=== PATIENT | female | born 1940 | race Caucasian/White ===

== ENCOUNTER 2017-12-15 21:17 | Inpatient (IN) | payer MEDICARE, OTHER ==
[2017-12-15] MEDS ORDERED: Acetaminophen/oxyCODONE 325-5 MG Tab PO ONE (22:32)
[2017-12-15] MEDS ORDERED: Pramipexole 0.5 MG Tab PO ONE (22:42)
--- NOTE | 2017-12-15 22:53 | EDM.PDOC ---
ED HPI GENERAL MEDICAL PROBLEM - General Chief Complaint: Lower Extremity Injury/Pain Stated Complaint: LEGS JUMPY Time Seen by Provider: 12/15/17 21:24 Source of Information: Reports: Patient, Family History Limitations: Reports: No Limitations - History of Present Illness INITIAL COMMENTS - FREE TEXT/NARRATIVE: 77 y.o.w.f came to the ed with her family because of her leg "jumping"> Pt has a H/O restles leg syndrom and is on Mirapex, however, she did not take that medication for the past 2 days. Pt says, she ran out of Mirapex multiple times in the past 10 years. However, her legs were never so "jumpy". She feel several time in the past 2 days, no injuries, however. She was seen by the Chiropractor today, who recommended to come to the ED tonight for furterh evaluation.No N/V/ D or dizziness. Pt was ambulating fine here in the ED. Did not fall. BP 129/89 Pulse 76 Temp 36.6 Puls ox 97% Onset Date: 12/12/17 Onset Time: 08:00 Duration: Day(s):, Intermittent Location: Reports: Lower Extremity, Left, Lower Extremity, Right Severity: Mild Improves with: Reports: None Worsens with: Reports: None Context: Reports: Other (H/o restless leg syndrom) Associated Symptoms: Reports: Other (frequent falls) Bilateral Leg Pain Score (Numeric/FACES): 8 - Related Data Allergies Allergy/AdvReac Type Severity Reaction Status Date / Time meperidine HCl [From Demerol] Allergy Dizziness Verified 12/15/17 21:23 Home Meds: Home Meds Aspirin 81 mg PO DAILY 03/02/14 [History] FLUoxetine [PROzac] 20 mg PO DAILY 03/02/14 [History] Glycopyrrolate [Robinul] 1 mg PO TID 03/02/14 [History] Insulin Glargine,Hum.Rec.Anlog [Lantus Solostar] 26 units SQ DAILY 03/02/14 [ History] Insulin Lispro [HumaLOG] 6 unit SQ TIDMEALS 03/02/14 [History] Prenat Vit Comb.10/Iron/Fa/Dha [Pnv-Ob with Dha Combo Pack] 1 tab PO DAILY 03/02 [History] Calc/D3/Mag/Zn/Dispensing Operator/Sushil/Comstock [Calcium 600 MG Plus Vit D] 1 tab PO TID 12/16/17 [History] Cyclobenzaprine [Flexeril] 10 mg PO TID PRN 12/16/17 [History] Ibuprofen [Advil] 200 mg PO Q6H PRN 12/16/17 [History] Ibuprofen/Diphenhydramine Cit [Advil Pm Caplet] 1 tab PO BEDTIME PRN 12/16/17 [ History] metFORMIN [Glucophage] 500 mg PO BIDMEALS 12/16/17 [History] Acetaminophen [Tylenol] 650 mg PO Q4H PRN tablet 12/17/17 [Rx] Ciprofloxacin [Ciprofloxacin HCl] 250 mg PO BID #10 tablet 12/17/17 [Rx] Pramipexole [Mirapex] 0.5 mg PO BID #60 tablet 12/17/17 [Rx] Pyridostigmine [Mestinon] 60 mg PO QID tablet 12/17/17 [Rx] metFORMIN [Glucophage] 500 mg PO BIDMEALS tablet 12/17/17 [Rx] Past Medical History Neurological History: Reports: Other (See Below) Other Neuro History: restless legs Endocrine/Metabolic History: Reports: Diabetes, Type II - Past Surgical History Female Surgical History: Reports: Other (See Below) Other Female Surgeries/Procedures: A&P repair Social & Family History - Tobacco Use Smoking Status *Q: Never Smoker - Caffeine Use Caffeine Use: Reports: Coffee - Alcohol Use Days Per Week of Alcohol Use: 0 - Recreational Drug Use Recreational Drug Use: No Review of Systems - Review of Systems Review Of Systems: See Below Constitutional: Reports: No Symptoms Eyes: Reports: No Symptoms Ears: Reports: No Symptoms Nose: Reports: No Symptoms Mouth/Throat: Reports: No Symptoms Respiratory: Reports: No Symptoms Cardiovascular: Reports: No Symptoms GI/Abdominal: Reports: No Symptoms Genitourinary: Reports: No Symptoms Musculoskeletal: Reports: No Symptoms Skin: Reports: No Symptoms Neurological: Reports: Other (her legs jump) Psychiatric: Reports: No Symptoms ED EXAM, GENERAL - Physical Exam Exam: See Below Exam Limited By: No Limitations General Appearance: Alert, WD/WN, No Apparent Distress Eye Exam: Bilateral Eye: Normal Inspection Ears: Normal External Exam Ear Exam: Bilateral Ear: Auricle Normal Nose: Normal Inspection Throat/Mouth: Normal Inspection Head: Atraumatic, Normocephalic Neck: Normal Inspection Respiratory/Chest: No Respiratory Distress Cardiovascular: Normal Peripheral Pulses, Regular Rate, Rhythm GI/Abdominal: Normal Bowel Sounds, Soft (Female) Exam: Deferred Rectal (Female) Exam: Deferred Back Exam: Normal Inspection, Full Range of Motion Extremities: Normal Inspection, Normal Range of Motion, Non-Tender, No Pedal Edema, Redness (both thighs) Neurological: Alert Psychiatric: Normal Affect, Normal Mood Skin Exam: Warm, Dry, Intact, Rash (both thighs) Lymphatic: No Adenopathy Course - Vital Signs Text/Narrative:: 77 y.o.w.f came to the ed with her family because of her leg "jumping"> Pt has a H/O restles leg syndrom and is on Mirapex, however, she did not take that medication for the past 2 days. Pt says, she ran out of Mirapex multiple times in the past 10 years. However, her legs were never so "jumpy". She feel several time in the past 2 days, no injuries, however. She was seen by the Chiropractor today, who recommended to come to the ED tonight for furterh evaluation.No N/V/ D or dizziness. Pt was ambulating fine here in the ED. Did not fall. BP 129/89 Pulse 76 Temp 36.6 Puls ox 97% PE: Erythema both thighs, "jumping legs" Labs: CBC nl, BMP GFR 48 Glc 188 GLC A1C1 10.2 ( no old labs are available) Impression: H/O restless leg syndrom, IDDM with hyperglycemia (GLC A1C i1 10.2) . Bilaterythem on both thighs. Poor compliance. 10.10 pm Consultation: Dr. Rey, Neurologist at [facility]: Recommended to the pt Perocet or any narcotic plus Mirapex and observe her overnight in the Hospital. She did not recommend other tests to be done tonight. Tx: Percocet and Mirapex Plan: Admit for observation Last Recorded V/S: Last Vital Signs Temp 36.7 C 12/17/17 08:00 Pulse 84 12/17/17 08:00 Resp 16 12/17/17 08:00 BP 133/73 12/17/17 08:00 Pulse Ox 96 12/17/17 08:00 - Orders/Labs/Meds Labs: Laboratory Tests 12/15/17 12/15/17 12/15/17 Range/Units 22:15 22:15 22:15 WBC 7.3 (4.5-12.0) X10-3/uL RBC 4.15 (3.23-5.20) x10(6)uL Hgb 12.4 (11.5-15.5) g/dL Hct 36.8 (30.0-51.3) % MCV 88.7 (80-96) fL MCH 29.9 (27.7-33.6) pg MCHC 33.7 (32.2-35.4) g/dL RDW 12.8 (11.5-15.5) % Plt Count 205 (125-369) X10(3)uL MPV 8.3 (7.4-10.4) fL Neut % (Auto) 63.0 (46-82) % Lymph % (Auto) 24.8 (13-37) % [place] % (Auto) 8.5 (4-12) % Eos % (Auto) 3 (1.0-5.0) % Baso % (Auto) 1 (0-2) % Neut # (Auto) 4.6 (1.6-8.3) # Lymph # (Auto) 1.8 (0.6-5.0) # [place] # (Auto) 0.6 (0.0-1.3) # Eos # (Auto) 0.2 (0.0-0.8) # Baso # (Auto) 0.1 (0.0-0.2) # Sodium 141 (135-145) mmol/L Potassium 4.7 (3.5-5.3) mmol/L Chloride 105 (100-110) mmol/L Carbon Dioxide 28 (21-32) mmol/L BUN 33 H (7-18) mg/dL Creatinine 1.1 H (0.55-1.02) mg/dL Est Cr Clr Drug Dosing 33.34 mL/min Estimated GFR (MDRD) 48 L (>60) BUN/Creatinine Ratio 30.0 H (9-20) Glucose 188 H (80-116) mg/dL POC Glucose (80-116) mg/dL Hemoglobin A1c 10.2 H (4.5-6.2) % Calcium 9.2 (8.6-10.2) mg/dL Urine Color (YELLOW) Urine Appearance (CLEAR) Urine pH (5.0-6.5) Ur Specific [place] (1.010-1.025) Urine Protein (NEGATIVE) mg/dL Urine Glucose (UA) (NEGATIVE) mg/dL Urine Ketones (NEGATIVE) mg/dL Urine Occult Blood (NEGATIVE) Urine Nitrite (NEGATIVE) Urine Bilirubin (NEGATIVE) Urine Urobilinogen (NEGATIVE) mg/dL Ur Leukocyte Esterase (NEGATIVE) Urine RBC (0) Urine WBC (0) Ur Squamous Epith Cells (NS,R,O) Urine Bacteria (NS) Urine Mucus (NS) 12/16/17 12/16/17 12/16/17 Range/Units 05:50 05:50 09:20 WBC (4.5-12.0) X10-3/uL RBC (3.23-5.20) x10(6)uL Hgb (11.5-15.5) g/dL Hct (30.0-51.3) % MCV (80-96) fL MCH (27.7-33.6) pg MCHC (32.2-35.4) g/dL RDW (11.5-15.5) % Plt Count (125-369) X10(3)uL MPV (7.4-10.4) fL Neut % (Auto) (46-82) % Lymph % (Auto) (13-37) % [place] % (Auto) (4-12) % Eos % (Auto) (1.0-5.0) % Baso % (Auto) (0-2) % Neut # (Auto) (1.6-8.3) # Lymph # (Auto) (0.6-5.0) # [place] # (Auto) (0.0-1.3) # Eos # (Auto) (0.0-0.8) # Baso # (Auto) (0.0-0.2) # Sodium 142 (135-145) mmol/L Potassium 3.9 (3.5-5.3) mmol/L Chloride 106 (100-110) mmol/L Carbon Dioxide 28 (21-32) mmol/L BUN 30 H (7-18) mg/dL Creatinine 0.9 (0.55-1.02) mg/dL Est Cr Clr Drug Dosing 60.37 mL/min Estimated GFR (MDRD) > 60 (>60) BUN/Creatinine Ratio 33.3 H (9-20) Glucose 84 D (80-116) mg/dL POC Glucose (80-116) mg/dL Hemoglobin A1c 10.3 H (4.5-6.2) % Calcium 8.6 (8.6-10.2) mg/dL Urine Color Yellow (YELLOW) Urine Appearance Clear (CLEAR) Urine pH 5.0 (5.0-6.5) Ur Specific [place] 1.025 (1.010-1.025) Urine Protein Negative (NEGATIVE) mg/dL Urine Glucose (UA) Normal (NEGATIVE) mg/dL Urine Ketones 15 H (NEGATIVE) mg/dL Urine Occult Blood Negative (NEGATIVE) Urine Nitrite Negative (NEGATIVE) Urine Bilirubin Negative (NEGATIVE) Urine Urobilinogen Normal (NEGATIVE) mg/dL Ur Leukocyte Esterase Moderate H (NEGATIVE) Urine RBC 0-5 (0) Urine WBC 50-75 H (0) Ur Squamous Epith Cells Moderate H (NS,R,O) Urine Bacteria Moderate H (NS) Urine Mucus Moderate H (NS) 12/16/17 12/16/17 Range/Units 11:04 16:06 WBC (4.5-12.0) X10-3/uL RBC (3.23-5.20) x10(6)uL Hgb (11.5-15.5) g/dL Hct (30.0-51.3) % MCV (80-96) fL MCH (27.7-33.6) pg MCHC (32.2-35.4) g/dL RDW (11.5-15.5) % Plt Count (125-369) X10(3)uL MPV (7.4-10.4) fL Neut % (Auto) (46-82) % Lymph % (Auto) (13-37) % [place] % (Auto) (4-12) % Eos % (Auto) (1.0-5.0) % Baso % (Auto) (0-2) % Neut # (Auto) (1.6-8.3) # Lymph # (Auto) (0.6-5.0) # [place] # (Auto) (0.0-1.3) # Eos # (Auto) (0.0-0.8) # Baso # (Auto) (0.0-0.2) # Sodium (135-145) mmol/L Potassium (3.5-5.3) mmol/L Chloride (100-110) mmol/L Carbon Dioxide (21-32) mmol/L BUN (7-18) mg/dL Creatinine (0.55-1.02) mg/dL Est Cr Clr Drug Dosing mL/min Estimated GFR (MDRD) (>60) BUN/Creatinine Ratio (9-20) Glucose (80-116) mg/dL POC Glucose 194 H 140 H (80-116) mg/dL Hemoglobin A1c (4.5-6.2) % Calcium (8.6-10.2) mg/dL Urine Color (YELLOW) Urine Appearance (CLEAR) Urine pH (5.0-6.5) Ur Specific [place] (1.010-1.025) Urine Protein (NEGATIVE) mg/dL Urine Glucose (UA) (NEGATIVE) mg/dL Urine Ketones (NEGATIVE) mg/dL Urine Occult Blood (NEGATIVE) Urine Nitrite (NEGATIVE) Urine Bilirubin (NEGATIVE) Urine Urobilinogen (NEGATIVE) mg/dL Ur Leukocyte Esterase (NEGATIVE) Urine RBC (0) Urine WBC (0) Ur Squamous Epith Cells (NS,R,O) Urine Bacteria (NS) Urine Mucus (NS) Meds: Medications Discontinued Medications Generic Name Dose Route Start Last Admin Trade Name Freq PRN Reason Stop Dose Admin Acetaminophen 650 mg 12/16/17 18:30 Tylenol PO Q4H PRN Pain Ciprofloxacin 250 mg 12/17/17 10:00 12/17/17 10:35 Ciprofloxacin Hcl PO 250 mg BID ANNE Administration Fluoxetine HCl 20 mg 12/16/17 09:00 12/17/17 08:42 Prozac PO 20 mg DAILY ANNE Administration Insulin Aspart 4 unit 12/16/17 21:00 12/17/17 08:23 Novolog SUBCUT 4 units QIDACANDBED ANNE Administration Insulin Aspart 4 unit 12/17/17 08:24 12/17/17 13:13 Novolog SUBCUT 4 units QIDACANDBED ANNE Administration Insulin Detemir 26 unit 12/17/17 09:00 12/17/17 10:56 Levemir SUBCUT 26 units DAILY ANNE Administration Metformin HCl 500 mg 12/16/17 10:00 12/16/17 17:43 Glucophage PO 500 mg BIDMEALS ANNE Administration Metformin HCl 500 mg 12/17/17 08:00 12/17/17 08:21 Glucophage PO 500 mg BIDMEALS ANNE Administration Lantus *Ptom 0 units 12/16/17 09:00 12/16/17 10:22 SQ 26 units DAILY ANNE Administration Humalog *Ptom 0 unit 12/16/17 11:30 12/16/17 17:40 SQ 4 unit ACBED ANNE Administration Pyridostigmine 60mg 0 mg 12/16/17 09:00 12/16/17 17:38 *Ptom PO 60 mg QID ANNE Administration Lantus *Ptom 0 units 12/17/17 10:30 12/17/17 10:37 SQ Not Given DAILY ANNE Oxycodone/Acetaminophen 1 tab 12/15/17 22:32 12/15/17 23:01 Percocet 325-5 Mg PO 12/15/17 22:33 1 tab ONETIME ONE Administration Oxycodone/Acetaminophen 1 tab 12/16/17 04:00 12/16/17 16:01 Percocet 325-5 Mg PO Not Given Q4H ANNE Pramipexole Dihydrochloride 0.5 mg 12/16/17 21:00 Mirapex PO BEDTIME ANNE Pramipexole Dihydrochloride 0.5 mg 12/16/17 22:42 Mirapex PO 12/16/17 22:43 ONETIME ONE Pramipexole Dihydrochloride 0.5 mg 12/15/17 22:42 12/15/17 23:00 Mirapex PO 12/15/17 22:43 Not Given ONETIME ONE Pramipexole Dihydrochloride 0.5 mg 12/15/17 23:00 12/15/17 23:01 Mirapex PO 12/15/17 23:01 0.5 mg ONETIME ONE Administration Pramipexole Dihydrochloride Confirm 12/15/17 22:58 12/15/17 23:05 Mirapex Administered 12/15/17 22:59 Not Given Dose 0.5 mg .ROUTE .STK-MED ONE Pramipexole Dihydrochloride 0.5 mg 12/16/17 10:00 12/17/17 08:42 Mirapex PO 0.5 mg BID ANNE Administration Pyridostigmine [place] 60 mg 12/16/17 21:00 12/17/17 13:18 Mestinon PO 60 mg QID ANNE Administration Departure - Departure Time of Disposition: 23:00 Disposition: Refer to Observation Condition: Fair Clinical Impression: Restless leg syndrome - Discharge Information
[2017-12-15] MEDS ORDERED: Pramipexole 0.25 MG Tab ONE (22:58)
[2017-12-15] MEDS ORDERED: Pramipexole 0.25 MG Tab PO ONE (23:00)
[2017-12-16] MEDS: Acetaminophen/oxyCODONE 325-5 MG Tab PO SCH ×4 (04:17→16:01)
[2017-12-16] MEDS ORDERED: LANTUS SQ SCH (09:00)
[2017-12-16] MEDS ORDERED: Pramipexole 0.5 MG Tab PO SCH ×2 (09:45→21:00)
[2017-12-16] MEDS ORDERED: metFORMIN 1,000 MG Tab *PTOM PO SCH (10:00)
[2017-12-16] MEDS: FLUoxetine 20 MG Cap PO SCH (10:23)
[2017-12-16] MEDS: PYRIDOSTIGMINE 60 MG PO SCH ×3 (10:24→17:38)
[2017-12-16] MEDS: metFORMIN 1,000 MG Tab *PTOM PO SCH ×2 (10:25→17:43)
[2017-12-16] MEDS: HUMALOG SQ SCH ×2 (11:46→17:40)
[2017-12-16] MEDS ORDERED: Acetaminophen 325 MG Tab PO PRN (18:30)
[2017-12-16] MEDS: Insulin Aspart 100 Units/ML 3 ML Pen SUBCUT SCH (20:25)
[2017-12-16] MEDS ORDERED: Pramipexole 0.5 MG Tab PO ONE (22:42)
[2017-12-17] MEDS ORDERED: metFORMIN 500 MG Tab PO SCH (08:00)
[2017-12-17] MEDS: Insulin Aspart 100 Units/ML 3 ML Pen SUBCUT SCH (08:23)
[2017-12-17] MEDS ORDERED: Insulin Aspart 100 Units/ML 3 ML Pen SUBCUT SCH (08:24)
[2017-12-17] MEDS: FLUoxetine 20 MG Cap PO SCH (08:42)
--- NOTE | 2017-12-17 09:41 | HP ---
ADMISSION DATE: 12/15/2017 REASON FOR VISIT: Recurrent falls, complicated leg pain, and restless leg. HISTORY OF PRESENT ILLNESS: Katie Lopez is a 77-year-old female, admitted through the ER. She presented with a complicated "leg jumping", increasing severe restlessness, inability to function, increasing pain and difficulty. Mirapex is on board intermittently. Severe symptoms in the last four days and recurrent falls, all occurring within her home. Fall without events, fall without injury, occurred spontaneously. She was seen by Dr. Nolen, chiropractic practitioner, who recommend further followup and workup. PAST HISTORY: Longstanding history of diabetes mellitus, on insulin therapy- inadequate control, confirmed myasthenia gravis, followed by Neurology, history of supraventricular tachycardia. PAST SURGICAL HISTORY: Previous appendectomy for acute appendicitis, previous vaginal hysterectomy for benign disease. 1. Flexeril 10 mg one p.o. t.i.d. 2. Albuterol metered-dose inhaler two puffs q.i.d. 3. Metformin 1000 mg half tab b.i.d. 4. Bydureon on report, but on further record, she is on Lantus and Humalog accordingly. Chronic illnesses include diabetes mellitus, myasthenia gravis, complicated restless legs syndrome. ALLERGIES: Allergic to Demerol with dizziness. SOCIAL HISTORY: Retired. Worked in agriculture. Previously , . Three children. Never smoked. Nil alcohol consumption. No illicit drug use. FAMILY HISTORY: Negative for early heart disease, diabetes mellitus, or inheritable cancers. REVIEW OF SYSTEMS: Please see HPI. Otherwise feeling well. Weight has been stable. Eyes: Difficulty vision with myasthenia gravis. Hearing is intact, no difficulty eating, bowels have been fine. Bladder has been fine. No blood in stools. No blood in urine, skin rash, or joint pain. PHYSICAL EXAMINATION: VITAL SIGNS: Temperature 36.5, pulse 86, blood pressure 115/62, respirations 16, and O2 saturations 97%. GENERAL: Cooperative, conversant. HEENT: Reveal funduscopic benign. Bright TMs. Clear nasal discharge. Mouth and oropharynx clear. Good gag reflex. Tongue midline. NECK: Benign. Thyroid small. No adenopathy. No carotid bruits. CHEST: Clear in all lung rodriguez. HEART: Regular without ectopy or murmur. ABDOMEN: Benign. No hepatosplenomegaly. Surgical scars were absent. Right lower quadrant appendectomy scar is well healed. PELVIC AND RECTAL: Deferred. EXTREMITIES: Well perfused. Reflex symmetric, 2+ over 4+, good peripheral pulses. Reflexes intact. Sensation normal. LABORATORY STUDIES: CBC revealed white count 7300, hemoglobin 12.4, hematocrit 36.8, normal indices. Electrolytes satisfactory. Hemoglobin A1c 10.2 and 10.3. EKG will be obtained. ASSESSMENT: A 77-year-old female who presents with peculiar complicated restless leg, recurrent falls, likely exacerbation of MS and restless legs. PLAN: Mestinon will be continued. Increase Mirapex 1.25 2 p.o. at bedtime to 2 daily, complementary care and well-being. We will do EKG given neurological status, and history of rhythm issues. /[id number] /[facility] /[id number] /[facility]
[2017-12-17 09:43] VITALS: BP 133/73
[2017-12-17] MEDS ORDERED: Ciprofloxacin 250 MG Tab PO SCH (10:00)
--- NOTE | 2017-12-17 10:27 | PN ---
DATE SEEN: 12/17/2017 SUBJECTIVE: Maria Del Carmen Lopez is a 77-year-old female, who presented with complicated leg pain. RLS is a consideration. Left posterior calf pain persists. D-dimer will be obtained. Urinalysis was markedly abnormal, showing evidence of gram-negative roly. Will be treated accordingly with expectation to culture the following. Dealing well otherwise. OBJECTIVE: VITAL SIGNS: Stable. 36.7, 133/73, O2 saturation 96%, respirations 16. GENERAL: Cooperative, conversant, good spirits. NECK: Benign. Thyroid small. CHEST: Clear in all lung rodriguez. HEART: Regular without ectopy or murmur. ABDOMEN: Benign. EXTREMITIES: Examination of the leg revealed no posterior calf swelling, moderate pain left posterior calf. Pulses intact. Reflexes symmetric, sensation normal. ASSESSMENT: 1. Complicated restless legs syndrome. 2. Urinary tract infection. PLAN: Cipro 250 b.i.d. D-dimer to follow. Complementary care and well being. Results accordingly. /[id number] DANILO/FIDENCIO
[2017-12-17] MEDS ORDERED: LANTUS SQ SCH (10:30)
[2017-12-17] MEDS: Insulin Detemir 100 Units/ML 3 ML Pen SUBCUT SCH ×2 (10:37→10:56)
--- NOTE | 2017-12-17 12:24 | PN ---
DATE SEEN: 12/17/2017 SUBJECTIVE: Katie Lopez is a 77-year-old female who presents with complicated restless leg. Symptoms have been improved with intervention and care. PHYSICAL EXAMINATION: Persistent left posterior calf pain per exam. No obvious deformity. Reflex symmetric, sensation intact. Mild pain. LABORATORY STUDIES: D-dimer 3610, normal 0 to 400. ASSESSMENT: Calf pain, rule out deep venous thrombosis. PLAN: Ultrasound will be performed. Complementary care and well-being, results to follow. /[id number] /FIDENCIO
--- NOTE | 2017-12-18 09:40 | US ---
INDICATION: Bilateral calf pain, right greater than left, question DVT. DUPLEX ULTRASOUND, RIGHT LOWER EXTREMITY VEINS: Utilizing 2-D real time, duplex Doppler spectral analysis, and color flow imaging, examination of the right lower extremity veins revealed no evidence of deep venous thrombosis or obstruction. Compression views showed no abnormal lack of compression to suggest thrombosis. No evidence of incompetence of the valves was identified. IMPRESSION: Duplex ultrasound, right lower extremity veins, shows no evidence of deep venous thrombosis or incompetence. DUPLEX ULTRASOUND, LEFT LOWER EXTREMITY VEINS: Utilizing 2-D real time, duplex Doppler spectral analysis, and color flow imaging, examination of the left lower extremity veins revealed no evidence of deep venous thrombosis or obstruction. Compression views showed no abnormal lack of compression to suggest thrombosis. No evidence of incompetence of the valves was identified. IMPRESSION: Duplex ultrasound, left lower extremity veins, shows no evidence of deep venous thrombosis or incompetence. [facility]
--- NOTE | 2017-12-18 10:41 | DISCH ---
DISCHARGE DATE: 12/17/2017 Katie Lopez is a 77-year-old female who presented with complicated bilateral leg pain. Seen by [facility]. Consultation with neurology in [place]. Admitted for treatment and pain control. Diagnostic studies were unremarkable. Urinalysis suggests UTI, 50,000 colonies, E. coli suspected. Treated with Cipro 250 b.i.d. Adjustments of medications were obtained including Mirapex or Requip, increasing dose from 0.25 at bedtime to 0.5 b.i.d., complementary care and well-being. Posterior calf pain likely mechanical in nature. Ultrasound revealed at the time of discharge left leg without conflict, right leg under review. She was ambulatory. Pain was controlled, in good spirits. Elevated D-dimer, further review. Follow up with Dr. Barboza in 2 weeks' duration. SURGICAL PROCEDURES: None. CONSULTATIONS: None. /[id number] DANILO/[facility]
== END 2017-12-17 13:58 | disposition home or self-care (01) | DRG 57 ==
LOC: FB.ED 21:17 → FB.MS 23:06 → OBSVTOIN 12-16 18:30
PROVIDERS: ADMIT Family Medicine; ATTEND Family Medicine
DX: G25.81 Restless legs syndrome (principal); N39.0 Urinary tract infection, site not specified; E11.649 Type 2 diabetes mellitus with hypoglycemia without coma; Z79.4 Long term (current) use of insulin; R29.6 Repeated falls; T42.8X6A Underdosing of antiparkinsonism drugs and other central muscle-tone depressants, initial encounter; Z91.128 Patient's intentional underdosing of medication regimen for other reason; Z79.899 Other long term (current) drug therapy; Z88.8 Allergy status to other drugs, medicaments and biological substances; G70.00 Myasthenia gravis without (acute) exacerbation; M79.662 Pain in left lower leg; Z79.82 Long term (current) use of aspirin; Z88.5 Allergy status to narcotic agent
CPT/HCPCS: 36415 ×2; 80048 ×2; 81001; 82962 ×2; 83036 ×2; 85025; 87086; 87088 ×2; 93005; 99283; A9270 ×15; 85379; 87186; 93970; G0378

== ENCOUNTER 2021-12-07 20:33 | Emergency (ER) | payer MEDICARE, OTHER ==
[2021-12-07] MEDS ORDERED: Sodium Chloride 0.9% 10 ML Syringe FLUSH PRN (20:40)
[2021-12-07] MEDS ORDERED: Ondansetron 4 MG/2 ML SDV IVPUSH ONE (20:40)
[2021-12-07] MEDS ORDERED: Sodium Chloride 0.9% 1,000 ML IV SCH (20:45)
[2021-12-07 23:59] VITALS: BP 128/74; PULSE 81
== END 2021-12-07 23:00 | disposition home or self-care (01) ==
LOC: FB.ED 20:33
DX: E11.65 Type 2 diabetes mellitus with hyperglycemia (principal); R11.2 Nausea with vomiting, unspecified; Z88.8 Allergy status to other drugs, medicaments and biological substances; Z79.82 Long term (current) use of aspirin; Z79.4 Long term (current) use of insulin; Z20.822 Contact with and (suspected) exposure to COVID-19
CPT/HCPCS: 36415; 80053; 85025; 96374; 99284; J2405; J7030; U0002

== ENCOUNTER 2022-03-31 12:05 | Inpatient (IN) | payer MEDICARE, OTHER ==
[2022-03-31] MEDS: oxyCODONE 5 MG Tab PO PRN ×2 (17:02→21:20)
[2022-03-31] MEDS: Ibuprofen 200 MG Tab PO SCH (17:34)
[2022-03-31] MEDS: Acetaminophen 500 MG Tab PO SCH (17:34)
[2022-03-31] MEDS: Calcium Carbonate 500 MG Tablet PO SCH (17:34)
[2022-03-31] MEDS: metFORMIN 500 MG Tab.ER PO SCH (20:04)
[2022-03-31] MEDS: Pramipexole 0.25 MG Tab PO SCH (20:04)
[2022-03-31] MEDS: Aspirin 81 MG Tab.EC PO SCH (20:05)
[2022-03-31] MEDS: Donepezil 5 MG Tab PO SCH (20:05)
[2022-04-01] MEDS: Acetaminophen 500 MG Tab PO SCH ×5 (00:11→23:34)
[2022-04-01] MEDS: Ibuprofen 200 MG Tab PO SCH ×5 (00:12→23:33)
[2022-04-01] MEDS: oxyCODONE 5 MG Tab PO PRN ×2 (04:52→12:26)
[2022-04-01] MEDS ORDERED: 50% Dextrose in Water 50 ML Syringe IVPUSH PRN (08:28)
[2022-04-01] MEDS ORDERED: Glucagon,Human Recombinant 1 MG Vial IM PRN (08:28)
[2022-04-01] MEDS: metFORMIN 500 MG Tab.ER PO SCH ×2 (09:03→17:29)
[2022-04-01] MEDS: FLUoxetine 20 MG Cap PO SCH (09:05)
[2022-04-01] MEDS: Calcium Carbonate 500 MG Tablet PO SCH ×3 (09:05→17:30)
[2022-04-01] MEDS: Pramipexole 0.25 MG Tab PO SCH ×3 (09:05→20:08)
[2022-04-01] MEDS: Aspirin 81 MG Tab.EC PO SCH ×2 (09:07→20:07)
[2022-04-01] MEDS: Empagliflozin 25 MG Tab PO SCH (09:08)
[2022-04-01] MEDS ORDERED: Insulin Glargine,Human Rec. Analog 100 Units/ML 3 ML Pen SUBCUT ONE (09:14)
[2022-04-01] MEDS: Insulin Glargine,Human Rec. Analog 100 Units/ML 3 ML Pen SUBCUT SCH (09:16)
[2022-04-01] MEDS ORDERED: Insulin Lispro 100 Unit/ML 3 ML KwikPen SUBCUT ONE (11:02)
[2022-04-01] MEDS: Insulin Lispro 100 Unit/ML 3 ML KwikPen SUBCUT SCH ×2 (11:10→17:32)
[2022-04-01] MEDS: Ondansetron 8 MG Tab.DIS PO PRN ×2 (15:51→23:35)
[2022-04-01] MEDS: Donepezil 5 MG Tab PO SCH (20:06)
[2022-04-02] MEDS: Acetaminophen 500 MG Tab PO SCH ×4 (05:14→23:37)
[2022-04-02] MEDS: Ibuprofen 200 MG Tab PO SCH ×4 (05:14→23:38)
[2022-04-02] MEDS: Empagliflozin 25 MG Tab PO SCH (08:33)
[2022-04-02] MEDS: Aspirin 81 MG Tab.EC PO SCH ×2 (08:33→20:02)
[2022-04-02] MEDS: metFORMIN 500 MG Tab.ER PO SCH ×2 (08:33→18:06)
[2022-04-02] MEDS: Calcium Carbonate 500 MG Tablet PO SCH ×3 (08:33→18:07)
[2022-04-02] MEDS: Insulin Glargine,Human Rec. Analog 100 Units/ML 3 ML Pen SUBCUT SCH (08:34)
[2022-04-02] MEDS: Pramipexole 0.25 MG Tab PO SCH ×3 (08:35→20:03)
[2022-04-02] MEDS: FLUoxetine 20 MG Cap PO SCH (08:35)
[2022-04-02] MEDS: Insulin Lispro 100 Unit/ML 3 ML KwikPen SUBCUT SCH ×3 (08:36→18:07)
[2022-04-02] MEDS: oxyCODONE 5 MG Tab PO PRN ×2 (12:29→18:07)
[2022-04-02] MEDS: Donepezil 5 MG Tab PO SCH (20:01)
[2022-04-02] MEDS: Ondansetron 8 MG Tab.DIS PO PRN (23:39)
[2022-04-03] MEDS: oxyCODONE 5 MG Tab PO PRN (01:56)
[2022-04-03] MEDS: Acetaminophen 500 MG Tab PO SCH ×3 (05:42→18:05)
[2022-04-03] MEDS: Ibuprofen 200 MG Tab PO SCH ×2 (05:43→12:21)
[2022-04-03] MEDS: Calcium Carbonate 500 MG Tablet PO SCH ×3 (08:04→18:05)
[2022-04-03] MEDS: metFORMIN 500 MG Tab.ER PO SCH ×2 (08:04→17:57)
[2022-04-03] MEDS: Aspirin 81 MG Tab.EC PO SCH ×2 (08:06→20:31)
[2022-04-03] MEDS: Empagliflozin 25 MG Tab PO SCH (08:12)
[2022-04-03] MEDS: Insulin Lispro 100 Unit/ML 3 ML KwikPen SUBCUT SCH ×3 (08:13→18:04)
[2022-04-03] MEDS: Insulin Glargine,Human Rec. Analog 100 Units/ML 3 ML Pen SUBCUT SCH (08:13)
[2022-04-03] MEDS: Pramipexole 0.25 MG Tab PO SCH ×3 (08:15→20:32)
[2022-04-03] MEDS: FLUoxetine 20 MG Cap PO SCH (08:17)
[2022-04-03] MEDS ORDERED: traMADol 50 MG Tab PO PRN (13:39)
[2022-04-03] MEDS: Ondansetron 8 MG Tab.DIS PO PRN (15:30)
[2022-04-03] MEDS: Promethazine 25 MG Tab PO PRN ×2 (16:32→21:37)
[2022-04-03] MEDS: Donepezil 5 MG Tab PO SCH (20:31)
[2022-04-04] MEDS: Ondansetron 8 MG Tab.DIS PO PRN (00:25)
[2022-04-04] MEDS: Acetaminophen 500 MG Tab PO SCH ×5 (05:00→23:00)
[2022-04-04] MEDS: metFORMIN 500 MG Tab.ER PO SCH ×2 (08:48→17:59)
[2022-04-04] MEDS: Calcium Carbonate 500 MG Tablet PO SCH ×3 (08:48→18:03)
[2022-04-04] MEDS: Aspirin 81 MG Tab.EC PO SCH ×2 (08:49→21:08)
[2022-04-04] MEDS: Pramipexole 0.25 MG Tab PO SCH ×3 (08:51→21:09)
[2022-04-04] MEDS: FLUoxetine 20 MG Cap PO SCH (08:52)
[2022-04-04] MEDS: Insulin Lispro 100 Unit/ML 3 ML KwikPen SUBCUT SCH ×3 (08:53→17:58)
[2022-04-04] MEDS: Insulin Glargine,Human Rec. Analog 100 Units/ML 3 ML Pen SUBCUT SCH (11:21)
[2022-04-04] MEDS: Acetaminophen/HYDROcodone 325-5 MG Tab PO PRN (11:29)
[2022-04-04] MEDS: Empagliflozin 25 MG Tab PO SCH (11:34)
[2022-04-04] MEDS: Donepezil 5 MG Tab PO SCH (21:08)
[2022-04-05] MEDS: Acetaminophen 500 MG Tab PO SCH ×3 (05:47→17:38)
[2022-04-05] MEDS: metFORMIN 500 MG Tab.ER PO SCH ×2 (08:20→17:36)
[2022-04-05] MEDS: Insulin Lispro 100 Unit/ML 3 ML KwikPen SUBCUT SCH ×3 (08:21→17:39)
[2022-04-05] MEDS: Aspirin 81 MG Tab.EC PO SCH ×2 (08:22→20:47)
[2022-04-05] MEDS: Calcium Carbonate 500 MG Tablet PO SCH ×3 (08:22→17:37)
[2022-04-05] MEDS: Empagliflozin 25 MG Tab PO SCH (08:23)
[2022-04-05] MEDS: FLUoxetine 20 MG Cap PO SCH (08:24)
[2022-04-05] MEDS: Pramipexole 0.25 MG Tab PO SCH ×3 (08:24→20:47)
[2022-04-05] MEDS: Insulin Glargine,Human Rec. Analog 100 Units/ML 3 ML Pen SUBCUT SCH (08:25)
[2022-04-05] MEDS: Acetaminophen/HYDROcodone 325-5 MG Tab PO PRN (13:56)
[2022-04-05] MEDS: Donepezil 5 MG Tab PO SCH (20:47)
[2022-04-06] MEDS: Acetaminophen 500 MG Tab PO SCH ×4 (00:44→17:21)
[2022-04-06] MEDS: metFORMIN 500 MG Tab.ER PO SCH ×2 (07:44→17:20)
[2022-04-06] MEDS: Calcium Carbonate 500 MG Tablet PO SCH ×3 (07:45→17:21)
[2022-04-06] MEDS: Insulin Lispro 100 Unit/ML 3 ML KwikPen SUBCUT SCH ×3 (07:47→17:24)
[2022-04-06] MEDS: Aspirin 81 MG Tab.EC PO SCH ×2 (08:58→21:44)
[2022-04-06] MEDS: Pramipexole 0.25 MG Tab PO SCH ×3 (08:59→21:44)
[2022-04-06] MEDS: Empagliflozin 25 MG Tab PO SCH (08:59)
[2022-04-06] MEDS: FLUoxetine 20 MG Cap PO SCH (09:00)
[2022-04-06] MEDS: Insulin Glargine,Human Rec. Analog 100 Units/ML 3 ML Pen SUBCUT SCH (09:01)
[2022-04-06] MEDS: Acetaminophen/HYDROcodone 325-5 MG Tab PO PRN (21:42)
[2022-04-06] MEDS: Donepezil 5 MG Tab PO SCH (21:45)
[2022-04-07] MEDS: Acetaminophen 500 MG Tab PO SCH ×4 (00:52→17:41)
[2022-04-07] MEDS: Insulin Lispro 100 Unit/ML 3 ML KwikPen SUBCUT SCH ×3 (08:00→17:50)
[2022-04-07] MEDS: Insulin Glargine,Human Rec. Analog 100 Units/ML 3 ML Pen SUBCUT SCH (08:05)
[2022-04-07] MEDS: Empagliflozin 25 MG Tab PO SCH (08:09)
[2022-04-07] MEDS: metFORMIN 500 MG Tab.ER PO SCH ×2 (08:09→17:38)
[2022-04-07] MEDS: Pramipexole 0.25 MG Tab PO SCH ×3 (08:10→20:47)
[2022-04-07] MEDS: Calcium Carbonate 500 MG Tablet PO SCH ×3 (08:10→17:40)
[2022-04-07] MEDS: FLUoxetine 20 MG Cap PO SCH (08:10)
[2022-04-07] MEDS: Aspirin 81 MG Tab.EC PO SCH ×2 (08:10→20:46)
[2022-04-07] MEDS: Donepezil 5 MG Tab PO SCH (20:46)
[2022-04-08] MEDS: Acetaminophen 500 MG Tab PO SCH ×4 (00:19→17:06)
[2022-04-08] MEDS: Acetaminophen/HYDROcodone 325-5 MG Tab PO PRN (03:53)
[2022-04-08] MEDS: Calcium Carbonate 500 MG Tablet PO SCH ×3 (09:10→17:06)
[2022-04-08] MEDS: FLUoxetine 20 MG Cap PO SCH (09:10)
[2022-04-08] MEDS: Pramipexole 0.25 MG Tab PO SCH ×3 (09:10→21:06)
[2022-04-08] MEDS: metFORMIN 500 MG Tab.ER PO SCH ×2 (09:10→17:07)
[2022-04-08] MEDS: Aspirin 81 MG Tab.EC PO SCH ×2 (09:10→21:04)
[2022-04-08] MEDS: Insulin Lispro 100 Unit/ML 3 ML KwikPen SUBCUT SCH ×3 (09:11→18:15)
[2022-04-08] MEDS: Empagliflozin 25 MG Tab PO SCH (09:11)
[2022-04-08] MEDS: Insulin Glargine,Human Rec. Analog 100 Units/ML 3 ML Pen SUBCUT SCH (09:12)
[2022-04-08] MEDS: Donepezil 5 MG Tab PO SCH (21:04)
[2022-04-09] MEDS: Acetaminophen 500 MG Tab PO SCH ×5 (00:25→23:31)
[2022-04-09] MEDS: Calcium Carbonate 500 MG Tablet PO SCH ×3 (08:37→18:06)
[2022-04-09] MEDS: Aspirin 81 MG Tab.EC PO SCH ×2 (08:37→20:37)
[2022-04-09] MEDS: metFORMIN 500 MG Tab.ER PO SCH ×2 (08:37→18:05)
[2022-04-09] MEDS: FLUoxetine 20 MG Cap PO SCH (08:38)
[2022-04-09] MEDS: Pramipexole 0.25 MG Tab PO SCH ×3 (08:38→20:38)
[2022-04-09] MEDS: Empagliflozin 25 MG Tab PO SCH (08:38)
[2022-04-09] MEDS: Insulin Glargine,Human Rec. Analog 100 Units/ML 3 ML Pen SUBCUT SCH (08:38)
[2022-04-09] MEDS: Insulin Lispro 100 Unit/ML 3 ML KwikPen SUBCUT SCH ×3 (08:39→18:05)
[2022-04-09] MEDS: Ibuprofen 200 MG Tab PO SCH ×2 (18:38→23:30)
[2022-04-09] MEDS: Donepezil 5 MG Tab PO SCH (20:37)
[2022-04-10] MEDS: Acetaminophen 500 MG Tab PO SCH ×4 (06:17→23:56)
[2022-04-10] MEDS: Ibuprofen 200 MG Tab PO SCH ×4 (06:17→23:56)
[2022-04-10] MEDS: metFORMIN 500 MG Tab.ER PO SCH ×2 (08:58→17:39)
[2022-04-10] MEDS: Calcium Carbonate 500 MG Tablet PO SCH ×3 (08:59→17:41)
[2022-04-10] MEDS: Empagliflozin 25 MG Tab PO SCH (08:59)
[2022-04-10] MEDS: Aspirin 81 MG Tab.EC PO SCH ×2 (08:59→20:36)
[2022-04-10] MEDS: Pramipexole 0.25 MG Tab PO SCH ×3 (09:00→20:36)
[2022-04-10] MEDS: FLUoxetine 20 MG Cap PO SCH (09:00)
[2022-04-10] MEDS: Insulin Lispro 100 Unit/ML 3 ML KwikPen SUBCUT SCH ×3 (09:02→17:42)
[2022-04-10] MEDS: Insulin Glargine,Human Rec. Analog 100 Units/ML 3 ML Pen SUBCUT SCH (09:03)
[2022-04-10] MEDS: Donepezil 5 MG Tab PO SCH (20:36)
[2022-04-10] MEDS: Acetaminophen/HYDROcodone 325-5 MG Tab PO PRN (20:54)
[2022-04-11] MEDS: Acetaminophen 500 MG Tab PO SCH ×4 (05:37→23:04)
[2022-04-11] MEDS: Ibuprofen 200 MG Tab PO SCH ×4 (05:39→23:03)
[2022-04-11] MEDS: Insulin Lispro 100 Unit/ML 3 ML KwikPen SUBCUT SCH ×3 (07:57→18:13)
[2022-04-11] MEDS: Calcium Carbonate 500 MG Tablet PO SCH ×3 (08:51→17:43)
[2022-04-11] MEDS: metFORMIN 500 MG Tab.ER PO SCH ×2 (08:51→17:43)
[2022-04-11] MEDS: Aspirin 81 MG Tab.EC PO SCH ×2 (08:52→20:54)
[2022-04-11] MEDS: Empagliflozin 25 MG Tab PO SCH (08:52)
[2022-04-11] MEDS: Pramipexole 0.25 MG Tab PO SCH ×3 (08:52→20:55)
[2022-04-11] MEDS: FLUoxetine 20 MG Cap PO SCH (08:52)
[2022-04-11] MEDS: Insulin Glargine,Human Rec. Analog 100 Units/ML 3 ML Pen SUBCUT SCH (08:53)
[2022-04-11] MEDS: Acetaminophen/HYDROcodone 325-5 MG Tab PO PRN (16:58)
[2022-04-11] MEDS: Donepezil 5 MG Tab PO SCH (20:53)
[2022-04-12] MEDS: Ibuprofen 200 MG Tab PO SCH ×3 (05:45→17:49)
[2022-04-12] MEDS: Acetaminophen 500 MG Tab PO SCH ×3 (05:45→17:50)
[2022-04-12] MEDS: metFORMIN 500 MG Tab.ER PO SCH ×2 (08:18→17:48)
[2022-04-12] MEDS: Aspirin 81 MG Tab.EC PO SCH ×2 (08:19→20:03)
[2022-04-12] MEDS: Insulin Lispro 100 Unit/ML 3 ML KwikPen SUBCUT SCH ×3 (08:19→18:02)
[2022-04-12] MEDS: Calcium Carbonate 500 MG Tablet PO SCH ×3 (08:19→17:49)
[2022-04-12] MEDS: Empagliflozin 25 MG Tab PO SCH (08:20)
[2022-04-12] MEDS: Pramipexole 0.25 MG Tab PO SCH ×3 (08:20→20:04)
[2022-04-12] MEDS: FLUoxetine 20 MG Cap PO SCH (08:20)
[2022-04-12] MEDS: Insulin Glargine,Human Rec. Analog 100 Units/ML 3 ML Pen SUBCUT SCH (08:22)
[2022-04-12] MEDS: Donepezil 5 MG Tab PO SCH (20:02)
[2022-04-13] MEDS: Acetaminophen 500 MG Tab PO SCH ×5 (00:05→23:40)
[2022-04-13] MEDS: Ibuprofen 200 MG Tab PO SCH ×5 (00:05→23:40)
[2022-04-13] MEDS: metFORMIN 500 MG Tab.ER PO SCH ×2 (08:11→17:49)
[2022-04-13] MEDS: Insulin Lispro 100 Unit/ML 3 ML KwikPen SUBCUT SCH ×3 (08:12→17:50)
[2022-04-13] MEDS: Calcium Carbonate 500 MG Tablet PO SCH ×3 (08:13→17:50)
[2022-04-13] MEDS: Aspirin 81 MG Tab.EC PO SCH (08:14)
[2022-04-13] MEDS: Empagliflozin 25 MG Tab PO SCH (08:15)
[2022-04-13] MEDS: Pramipexole 0.25 MG Tab PO SCH ×3 (08:16→21:34)
[2022-04-13] MEDS: FLUoxetine 20 MG Cap PO SCH (08:17)
[2022-04-13] MEDS: Insulin Glargine,Human Rec. Analog 100 Units/ML 3 ML Pen SUBCUT SCH (08:18)
[2022-04-13] MEDS: Donepezil 5 MG Tab PO SCH (21:34)
[2022-04-14] MEDS: Acetaminophen 500 MG Tab PO SCH ×3 (05:53→17:19)
[2022-04-14] MEDS: Ibuprofen 200 MG Tab PO SCH ×3 (05:53→17:19)
[2022-04-14] MEDS: metFORMIN 500 MG Tab.ER PO SCH ×2 (08:33→17:27)
[2022-04-14] MEDS: Insulin Lispro 100 Unit/ML 3 ML KwikPen SUBCUT SCH ×3 (08:33→17:17)
[2022-04-14] MEDS: Calcium Carbonate 500 MG Tablet PO SCH ×3 (08:35→17:19)
[2022-04-14] MEDS: Aspirin 81 MG Tab.EC PO SCH (08:35)
[2022-04-14] MEDS: Insulin Glargine,Human Rec. Analog 100 Units/ML 3 ML Pen SUBCUT SCH (08:36)
[2022-04-14] MEDS: Empagliflozin 25 MG Tab PO SCH (08:36)
[2022-04-14] MEDS: Pramipexole 0.25 MG Tab PO SCH ×3 (08:37→21:14)
[2022-04-14] MEDS: FLUoxetine 20 MG Cap PO SCH (08:38)
[2022-04-14] MEDS: Ondansetron 8 MG Tab.DIS PO PRN (17:16)
[2022-04-14] MEDS: Donepezil 5 MG Tab PO SCH (21:15)
[2022-04-15] MEDS: Ibuprofen 200 MG Tab PO SCH ×5 (00:26→23:51)
[2022-04-15] MEDS: Acetaminophen 500 MG Tab PO SCH ×5 (00:26→23:51)
[2022-04-15] MEDS: metFORMIN 500 MG Tab.ER PO SCH ×2 (08:08→17:59)
[2022-04-15] MEDS: Insulin Lispro 100 Unit/ML 3 ML KwikPen SUBCUT SCH ×3 (08:09→18:01)
[2022-04-15] MEDS: Calcium Carbonate 500 MG Tablet PO SCH ×3 (08:10→18:00)
[2022-04-15] MEDS: Empagliflozin 25 MG Tab PO SCH (08:10)
[2022-04-15] MEDS: Aspirin 81 MG Tab.EC PO SCH (08:10)
[2022-04-15] MEDS: FLUoxetine 20 MG Cap PO SCH (08:11)
[2022-04-15] MEDS: Pramipexole 0.25 MG Tab PO SCH ×3 (08:11→20:16)
[2022-04-15] MEDS ORDERED: Insulin Glargine,Human Rec. Analog 100 Units/ML 3 ML Pen SUBCUT ONE (08:17)
[2022-04-15] MEDS: Insulin Glargine,Human Rec. Analog 100 Units/ML 3 ML Pen SUBCUT SCH (08:20)
[2022-04-15] MEDS: Donepezil 5 MG Tab PO SCH (22:06)
[2022-04-15] MEDS: Ondansetron 8 MG Tab.DIS PO PRN (22:51)
[2022-04-16] MEDS: Acetaminophen 500 MG Tab PO SCH ×4 (05:10→22:59)
[2022-04-16] MEDS: Ibuprofen 200 MG Tab PO SCH ×4 (05:10→22:59)
[2022-04-16] MEDS: Pramipexole 0.25 MG Tab PO SCH ×3 (08:15→20:47)
[2022-04-16] MEDS: FLUoxetine 20 MG Cap PO SCH (08:16)
[2022-04-16] MEDS: metFORMIN 500 MG Tab.ER PO SCH ×2 (08:16→17:59)
[2022-04-16] MEDS: Empagliflozin 25 MG Tab PO SCH (08:16)
[2022-04-16] MEDS: Aspirin 81 MG Tab.EC PO SCH (08:16)
[2022-04-16] MEDS: Calcium Carbonate 500 MG Tablet PO SCH ×3 (08:16→18:01)
[2022-04-16] MEDS: Insulin Glargine,Human Rec. Analog 100 Units/ML 3 ML Pen SUBCUT SCH (08:17)
[2022-04-16] MEDS: Insulin Lispro 100 Unit/ML 3 ML KwikPen SUBCUT SCH ×3 (08:19→18:03)
[2022-04-16] MEDS: Donepezil 5 MG Tab PO SCH (20:46)
[2022-04-17] MEDS: Acetaminophen 500 MG Tab PO SCH ×3 (05:49→17:29)
[2022-04-17] MEDS: Ibuprofen 200 MG Tab PO SCH ×3 (05:50→17:29)
[2022-04-17] MEDS: Calcium Carbonate 500 MG Tablet PO SCH ×3 (09:00→17:28)
[2022-04-17] MEDS: metFORMIN 500 MG Tab.ER PO SCH ×2 (09:00→17:26)
[2022-04-17] MEDS: Insulin Lispro 100 Unit/ML 3 ML KwikPen SUBCUT SCH ×3 (09:01→17:23)
[2022-04-17] MEDS: Insulin Glargine,Human Rec. Analog 100 Units/ML 3 ML Pen SUBCUT SCH (09:02)
[2022-04-17] MEDS: Empagliflozin 25 MG Tab PO SCH (09:06)
[2022-04-17] MEDS: Aspirin 81 MG Tab.EC PO SCH (09:06)
[2022-04-17] MEDS: Pramipexole 0.25 MG Tab PO SCH ×3 (09:06→20:39)
[2022-04-17] MEDS: FLUoxetine 20 MG Cap PO SCH (09:07)
[2022-04-17] MEDS: Donepezil 5 MG Tab PO SCH (20:38)
[2022-04-18] MEDS: Ibuprofen 200 MG Tab PO SCH ×4 (05:08→17:51)
[2022-04-18] MEDS: Acetaminophen 500 MG Tab PO SCH ×4 (05:09→17:52)
[2022-04-18] MEDS: Insulin Glargine,Human Rec. Analog 100 Units/ML 3 ML Pen SUBCUT SCH (09:47)
[2022-04-18] MEDS: Insulin Lispro 100 Unit/ML 3 ML KwikPen SUBCUT SCH ×3 (09:53→17:53)
[2022-04-18] MEDS: Calcium Carbonate 500 MG Tablet PO SCH ×3 (09:55→17:53)
[2022-04-18] MEDS: metFORMIN 500 MG Tab.ER PO SCH ×2 (09:55→17:51)
[2022-04-18] MEDS: Aspirin 81 MG Tab.EC PO SCH (09:56)
[2022-04-18] MEDS: Empagliflozin 25 MG Tab PO SCH (09:56)
[2022-04-18] MEDS: FLUoxetine 20 MG Cap PO SCH (09:57)
[2022-04-18] MEDS: Pramipexole 0.25 MG Tab PO SCH ×3 (09:57→20:20)
[2022-04-18] MEDS: Donepezil 5 MG Tab PO SCH (20:20)
[2022-04-19] MEDS: Ibuprofen 200 MG Tab PO SCH ×3 (00:45→12:02)
[2022-04-19] MEDS: Acetaminophen 500 MG Tab PO SCH ×3 (00:45→12:02)
[2022-04-19 06:55] VITALS: BP 116/55; PULSE 77
[2022-04-19] MEDS: Insulin Lispro 100 Unit/ML 3 ML KwikPen SUBCUT SCH ×2 (08:58→12:03)
[2022-04-19] MEDS: Insulin Glargine,Human Rec. Analog 100 Units/ML 3 ML Pen SUBCUT SCH (08:59)
[2022-04-19] MEDS: metFORMIN 500 MG Tab.ER PO SCH (09:02)
[2022-04-19] MEDS: Pramipexole 0.25 MG Tab PO SCH (09:03)
[2022-04-19] MEDS: Aspirin 81 MG Tab.EC PO SCH (09:03)
[2022-04-19] MEDS: Calcium Carbonate 500 MG Tablet PO SCH ×2 (09:03→12:02)
[2022-04-19] MEDS: Empagliflozin 25 MG Tab PO SCH (09:03)
[2022-04-19] MEDS: FLUoxetine 20 MG Cap PO SCH (09:04)
== END 2022-04-19 12:15 | disposition home or self-care (01) | DRG 560 ==
LOC: FB.MS 14:38
PROVIDERS: ADMIT Family Medicine; ATTEND Family Medicine
DX: Z47.1 Aftercare following joint replacement surgery (principal); R44.3 Hallucinations, unspecified; S72.002D Fracture of unspecified part of neck of left femur, subsequent encounter for closed fracture with routine healing; Z96.642 Presence of left artificial hip joint; G31.84 Mild cognitive impairment of uncertain or unknown etiology; G70.00 Myasthenia gravis without (acute) exacerbation; E11.9 Type 2 diabetes mellitus without complications; Z79.4 Long term (current) use of insulin; Z79.82 Long term (current) use of aspirin; Z79.899 Other long term (current) drug therapy; Z86.19 Personal history of other infectious and parasitic diseases; R11.2 Nausea with vomiting, unspecified
CPT/HCPCS: 36415; 82947; 85014; 85018; 97110-GO; 97110-GP; 97112-GP; 97116-GP; 97129-GO; 97130-GO; 97161-GP; 97166-GO; 97530-GO; 97530-GP; 97535-GO; A9270-GY; J1815; J1815-GY

== ENCOUNTER 2022-05-24 22:09 | Emergency (ER) | payer MEDICARE, OTHER ==
[2022-05-24 22:21] VITALS: BP 139/75; PULSE 84
[2022-05-24 22:51] LABS: ESTIMATED GFR 51 mL/min (>60)
[2022-05-24] MEDS: Lactated Ringers 1,000 ML IV ONE (23:00)
[2022-05-25] MEDS: Acetaminophen 500 MG Tab PO ONE (00:03)
== END 2022-05-25 00:10 | disposition home or self-care (01) ==
LOC: FB.ED 22:09
DX: R25.2 Cramp and spasm (principal); E86.0 Dehydration; E11.9 Type 2 diabetes mellitus without complications; Z88.6 Allergy status to analgesic agent; Z79.899 Other long term (current) drug therapy; Z79.4 Long term (current) use of insulin; Z79.82 Long term (current) use of aspirin
CPT/HCPCS: 36415; 80048; 83735; 96360; 99282; 99283-25; A9270-GY; J7120

== ENCOUNTER 2022-07-03 02:33 | Emergency (ER) | payer MEDICARE, OTHER ==
[2022-07-03 03:57] VITALS: BP 115/67; PULSE 104
== END 2022-07-03 03:45 | disposition home or self-care (01) ==
LOC: FB.ED 02:33
DX: E11.649 Type 2 diabetes mellitus with hypoglycemia without coma (principal); Z88.8 Allergy status to other drugs, medicaments and biological substances; Z79.899 Other long term (current) drug therapy; Z79.4 Long term (current) use of insulin; Z79.84 Long term (current) use of oral hypoglycemic drugs; Z79.82 Long term (current) use of aspirin; Z90.49 Acquired absence of other specified parts of digestive tract
CPT/HCPCS: 82947; 99284